=== PATIENT | male | born 1945 | race Caucasian/White ===

== ENCOUNTER 2018-11-27 11:57 | Emergency (ER) | payer MEDICARE, OTHER ==
[~2018-11-27] VITALS: Ht 167.6 cm; Wt 82.3 kg
[~2018-11-27 11:57] MED LIST: 00186-0370-20 IH; ACETAMINOPHEN W1 TA6 PO; ACIPHEX20 MG PO; ALBUTEROL0.09 MG/A1 IH; ALBUTEROL0.83 MG/ML IH; AMOXICILLIN 50500 MG PO; AMOXICILLIN 8751 TAB PO; ARTIFICIAL SALIVA PO; ASPIRIN 81M81 MG/TA2 PO; BACITRACIN TOPIC1 TU TOP; BETIMOL 0.5% OPH5 ML OP; CELEBREX 200MG200 MG PO; CELEXA20 MG PO; CELEXA40 MG PO; CEPHALEXIN500 M1 PO; CLOPIDOGREL PO; COMBIRESP; COMBIVENT INH14.7 GM IH; COUMADIN 22.5 MG/TAB PO; COUMADIN 5MG5 MG/TAB PO; CYMBALTA 60MG60 MG PO; DESYREL 50MG50 MG PO; DOXYCYCLINE 10100 MG PO; FISH OIL CONC1000 MG PO; FLONASE NASAL S16 GM NS; FLONASEALLERGY NS; FORADIL AERO0.012 MG IH; HCTZ12.5TAB PO; IMDUR 30MG30 MG/TAB PO; ISTALOL 2.5 ML2.5 ML OP; LEVAQUIN 750MG750 M1 PO; LIPITOR 40MG TA40 MG PO; LIPITOR 80MG80 MG PO; LISINOPRIL10 MG PO; LISINOPRIL5 MG PO; LOPRESSOR 225 MG/TAB PO; LOPRESSOR PO; LORTAB 7.5/5001 TAB PO; MASON NATURAL2000 IU PO; MUCINEX D1 TER PO; NASACORT AQ N16.5 GM NS; NASONEX SPRAY INH; NITROSTAT0.4 MG/TAB SL; NORCO 325 MG-51 TAB PO; NORCO 325 MG-7.1 TAB PO; PANTOPRAZOLE40 MG PO; PEPCID 20MG TAB20 MG PO; PLAVIX 75MG TAB75 MG PO; PREDNISONE10 MG PO; PREDNISONE20 MG PO; PRINIVIL10 MG PO; PRINIVIL20 MG PO; PRINIVIL5 MG PO; PRO-AIR IH; PROTONIX 40MG T40 MG PO; PROVENTIL0.09 MG/A1 IH; PULMICORT0.5 MG/21 IH; REMERON 15M15 MG/TA1 PO; REMERON30 MG PO; ROBITUSSIN100 MG/5 M PO; RT SPIRIVA18 MCG IH; SEPTRA DS 8001 TAB PO; SINGULAIR10 MG PO; SPIRIVA RE2.5 MCG/Ac IH; TIMOLOL 0.5% OP10 ML OS; TIMOLOL OPHTHALMIC OS; TIMOPTIC OCUDOSE0.5% OP; TOPROL XL 25MG25 MG PO; TOPROL XL25 MG PO; TRAVATAN 2.5 M2.5 M1 OU; TRAVATAN 2.5 M2.5 ML OP; TRAVATAN Z 2.52.5 ML OU; TUSS PO; TYLENOL 325MG325 MG PO; TYLENOL 500MG500 MG PO; ULTRAM 50MG TAB50 MG PO; UROCIT-K 5540 MG/TAB PO; VENTOLIN0.09 MG IH; XALATAN EYE DROPS OD; XALATAN EYE DROPS OU; ZESTRIL 10MG10 MG PO; ZESTRIL10 MG PO; ZITHROMAX 250M250 MG PO; ZOCOR80 MG PO; ZYRTEC5 MG PO
[2018-11-27 12:05] VITALS: TEMP 97.6
[2018-11-27 12:19] LABS: BASO # 0.1 (0.0-0.2); BASO % 0.6 % (0.0-2.0); EOS # 0.5 (0.0-0.7); GRAN # 4.6 (1.4-6.5); GRAN % 58.1 % (42.2-75.2); HEMATOCRIT 43.2 % (42.0-52.0); HEMOGLOBIN 14.6 g/dl (13.5-18.0); LYMPH % 24.9 % (20.0-51.0); MEAN CELL VOLUME 94 fl (80.0-100.0); MEAN CORPUSCULAR HEMOGLOBIN 32 pg (27.0-31.0); MEAN CORPUSCULAR HGB CONC 34 g/dl (33.0-37.0); MEAN PLATELET VOLUME 8.9 fl (7.4-10.4); MONO # 0.8 (0.1-0.6); MONO % 10.1 % (1.7-9.3); PLATELET COUNT 242 K/mm3 (130-400); RED BLOOD COUNT 4.62 M/mm3 (4.20-5.60); REDCELL DISTRIBUTION WIDTH-CV 13.8 % (11.5-14.5)
[2018-11-27 12:26] LABS: INR 1.3 (0.8-3.0); PROTHROMBIN TIME 14.4 SECONDS (9.7-12.8)
[2018-11-27 12:28] LABS: ALANINE AMINOTRANSFERASE 15 U/L (21-72); ALBUMIN 3.9 gm/dL (3.5-5.0); ALKALINE PHOSPHATASE 103 U/L (50-136); ANION GAP 7 mmol/L (7-16); AST,SGOT 30 U/L (15-37); BILIRUBIN,TOTAL 0.9 mg/dL (0.0-1.0); BLOOD UREA NITROGEN 16 mg/dL (9-20); CALCIUM 9.2 mg/dL (8.4-10.2); CARBON DIOXIDE 29 mmol/L (22-30); CHLORIDE 100 mmol/L (98-107); CREATININE, serum 1.34 mg/dL (0.66-1.25); GLUCOSE 113 mg/dL (74-106); LIPASE 137 U/L (23-300); POTASSIUM 4.1 mmol/L (3.4-5.0); SODIUM 137 mmol/L (137-145); TOTAL PROTEIN 7.4 gm/dL (6.4-8.2)
[2018-11-27 12:42] LABS: TROPONIN-I < 0.012 ng/mL (0.000-0.035)
[2018-11-27] MEDS ORDERED: ELIQUIS 5MG PO (12:58)
[2018-11-27] MEDS ORDERED: ZYRTEC 10MG10 MG PO (13:00)
[2018-11-27] MEDS ORDERED: IMDUR 30MG30 MG/TAB PO (13:01)
[2018-11-27 15:57] VITALS: BP 116/73; PULSE 76
== END 2018-11-27 16:00 | disposition home or self-care (01) ==
LOC: COL.ER 11:57
PROVIDERS: Emergency Medicine
DX: R07.89 Other chest pain (principal); R00.2 Palpitations; I48.91 Unspecified atrial fibrillation; Z95.9 Presence of cardiac and vascular implant and graft, unspecified
CPT/HCPCS: J7030

== ENCOUNTER 2021-08-02 13:23 | Emergency (ER) | payer OTHER, MEDICARE ==
[~2021-08-02] VITALS: Ht 167.6 cm; Wt 78.2 kg
[~2021-08-02 13:23] MED LIST changes: +ELIQUIS 5MG PO; +ZYRTEC 10MG10 MG PO
[2021-08-02 13:39] VITALS: TEMP 98.1
[2021-08-02 14:23] LABS: BASO # 0.1 K/mm3 (0.0-0.2); BASO % 0.8 % (0.0-2.0); EOS # 0.2 K/mm3 (0.0-0.7); EOS % 3.6 % (0-4.0); GRAN % 60.4 % (42.2-75.2); HEMATOCRIT 37.5 % (42.0-52.0); LYMPH # 1.6 K/mm3 (1.2-3.4); LYMPH % 24.5 % (20.0-51.0); MEAN CELL VOLUME 87 fl (80.0-100.0); MEAN CORPUSCULAR HEMOGLOBIN 30 pg (27.0-31.0); MEAN CORPUSCULAR HGB CONC 35 g/dl (33.0-37.0); MEAN PLATELET VOLUME 8.2 fl (7.4-10.4); MONO # 0.7 K/mm3 (0.1-0.6); MONO % 10.4 % (1.7-9.3); PLATELET COUNT 223 K/mm3 (130-400); REDCELL DISTRIBUTION WIDTH-CV 13.9 % (11.5-14.5)
[2021-08-02 14:30] LABS: INR 1.5 (0.8-3.0); PROTHROMBIN TIME 16.7 SECONDS (9.7-12.8)
[2021-08-02 14:38] LABS: ALANINE AMINOTRANSFERASE 9 U/L (0-55); ALBUMIN 3.6 gm/dL (3.4-4.8); ALKALINE PHOSPHATASE 101 U/L (40-150); ANION GAP 11 mmol/L (7-16); AST,SGOT 24 U/L (5-34); BILIRUBIN,TOTAL 0.7 mg/dL (0.2-1.2); BLOOD UREA NITROGEN 11 mg/dL (8-26); CALCIUM 9.6 mg/dL (8.4-10.2); CARBON DIOXIDE 29 mmol/L (23-31); CHLORIDE 100 mmol/L (98-107); CREATININE, serum 1.42 mg/dL (0.72-1.25); GLUCOSE 87 mg/dL (70-99); POTASSIUM 3.3 mmol/L (3.5-4.5); SODIUM 140 mmol/L (136-145)
[2021-08-02 14:44] LABS: TROPONIN-I < 0.010 ng/mL (0.00-0.033)
[2021-08-02] MEDS ORDERED: LEVAQUIN 5500 MG/TA1 PO (15:13)
[2021-08-02 15:22] VITALS: BP 123/75; PULSE 49
== END 2021-08-02 15:22 | disposition home or self-care (01) ==
LOC: COL.ER 13:23
PROVIDERS: Nurse Practitioner Primary Care
DX: J44.1 Chronic obstructive pulmonary disease with (acute) exacerbation (principal); I10 Essential (primary) hypertension; F32.A Depression, unspecified; I25.10 Atherosclerotic heart disease of native coronary artery without angina pectoris; Z79.899 Other long term (current) drug therapy

== ENCOUNTER 2022-04-27 14:48 | Emergency (ER) | payer OTHER, MEDICARE ==
[~2022-04-27] VITALS: Ht 167.6 cm; Wt 81.4 kg
[~2022-04-27 14:48] MED LIST changes: +LEVAQUIN 5500 MG/TA1 PO
[2022-04-27 15:29] LABS: BASO % 0.5 % (0.0-2.0); EOS # 0.2 K/mm3 (0.0-0.7); EOS % 2.8 % (0.0-4.0); GRAN # 4.8 K/mm3 (1.4-6.5); GRAN % 63.6 % (42.2-75.2); HEMATOCRIT 37.3 % (42.0-52.0); LYMPH # 1.8 K/mm3 (1.2-3.4); LYMPH % 24.3 % (20.0-51.0); MEAN CELL VOLUME 91 fl (80.0-100.0); MEAN CORPUSCULAR HEMOGLOBIN 32 pg (27-31); MEAN CORPUSCULAR HGB CONC 35 g/dl (33.0-37.0); MONO # 0.6 K/mm3 (0.1-0.6); MONO % 8.4 % (1.7-9.3); PLATELET COUNT 192 K/mm3 (130-400); REDCELL DISTRIBUTION WIDTH-CV 14.3 % (11.5-14.5)
[2022-04-27 15:52] LABS: ALBUMIN 3.6 gm/dL (3.4-4.8); BILIRUBIN,TOTAL 0.7 mg/dL (0.2-1.2); CALCIUM 9.5 mg/dL (8.4-10.2); CREATININE, serum 1.21 mg/dL (0.72-1.25); POTASSIUM 3.4 mmol/L (3.5-4.5); TOTAL PROTEIN 7.7 gm/dL (6.2-8.1)
[2022-04-27] MEDS ORDERED: LEVAQUIN 5500 MG/TA1 PO (17:09)
[2022-04-27] MEDS ORDERED: PREDNISONE20 MG PO (17:09)
[2022-04-27 17:39] VITALS: BP 141/74; PULSE 57; TEMP 96.6
== END 2022-04-27 17:39 | disposition home or self-care (01) ==
LOC: COL.ER 14:48
PROVIDERS: Emergency Medicine
DX: J44.1 Chronic obstructive pulmonary disease with (acute) exacerbation (principal); E87.6 Hypokalemia; Z87.891 Personal history of nicotine dependence; Z88.1 Allergy status to other antibiotic agents; Z20.822 Contact with and (suspected) exposure to COVID-19
CPT/HCPCS: J7512